=== PATIENT | female | born 1985 | race Caucasian/White ===

== ENCOUNTER 2025-08-20 09:28 | Emergency (ER) | payer OTHER, SELFPAY ==
[2025-08-20 09:57] VITALS: BP 115/62; PULSE 106; RESP 18; TEMP 36.6; O2SAT 99
[2025-08-20 10:04] LABS: EDSTREPNEGPOS1 Positive (Negative)
[2025-08-20 10:11] LABS: EDCOVIDSCREEN Negative (Negative); EDINFLUASCREEN Negative (Negative); EDINFLUBSCREEN Negative (Negative)
--- NOTE | 2025-08-20 11:16 | ED_ITS ---
HPI - URI/Sore Throat General Chief Complaint: Upper Respiratory Infection Stated Complaint: Sore Throat History of Present Illness HPI Narrative: 40-year-old female here with complaints of congestion, cough, sore throat that started Thursday. Patient with fever also. Treated with amoxicillin for strep about 3 weeks ago states full resolution and then she started getting sick just on Thursday. Has a son also with fever and sore throat that is here today being evaluated to. Denies any shortness of breath, nausea, vomiting. Related Data Home Medications ?Medication ?Instructions ?Recorded ?Confirmed ?Last Taken ?Type levothyroxine 50 mcg tablet mcg 08/20/25 Unknown Hist ory metoprolol succinate 25 mg mg PO 08/20/25 Unknown His tory tablet,extended release 24 hr phendimetrazine tartrate 105 mg mg PO 08/20/25 Unknow n History capsule,extended release Allergies Allergy/AdvReac Type Severity Reaction Status Date / Time metoclopramide (From Reglan) AdvReac Intermediate Shakiness Verified 08/20/25 10:08 Review of Systems Review of Systems: All systems reviewed & are unremarkable except as noted in HPI and below Eyes: Eyes: Reports as per HPI ENT: Reports as per HPI Cardiovascular: Cardiovascular: Reports as per HPI Respiratory: Respiratory: Reports as per HPI Genitourinary: Genitourinary: Reports as per HPI Musculoskeletal: Musculoskeletal: Reports as per HPI Integumentary/Breasts: Skin/Breast: Reports as per HPI Neurologic: Reports as per HPI Psychiatric: Psychiatric: Reports as per HPI Endocrine: Endocrine: Reports as per HPI Hematologic/Lymphatic: Hematologic/Lymphatic: Reports as per HPI Allergic/Immunologic: Allergic/Immunologic: Reports as per HPI Exam Const: General: cooperative, healthy appearing, comfortable, no acute distress and well developed Orientation/consciousness: patient oriented x3 HENMT: Head: normal to inspection Ears: TM's normal bilaterally Throat: uvula midline, abnormal tonsil bilateral erythema, hypertrophy 2+ and pitting and posterior oropharynx abnormal erythema Eyes: General: appearance normal, both eyes and all related structures Resp: Effort & Inspection: normal respiratory effort and able to speak in complete sentences Auscultation: clear to auscultation bilaterally Cardio: Rate: regular rate Rhythm: regular rhythm Heart sounds: S1 normal heart sound present and S2 normal heart sound present Skin: General skin exam: normal color Neuro: General: patient oriented x3 Cognition (Neuro): normal cognition Speech: normal speech Psych: Mental Status: mental status grossly normal Course Course Level of Care: Express Care Visit Vital Signs Vital signs: Vital Signs Temperature 97.9 F 08/20/25 09:57 Pulse Rate 106 H 08/20/25 09:57 Respiratory Rate 18 08/20/25 09:57 Blood Pressure 115/62 08/20/25 09:57 Pulse Oximetry 99 08/20/25 09:57 Oxygen Delivery Room Air 08/20/25 09:57 Temperature 97.9 F 08/20/25 09:57 Pulse Rate 106 H 08/20/25 09:57 Respiratory Rate 18 08/20/25 09:57 Blood Pressure 115/62 08/20/25 09:57 Pulse Oximetry 99 08/20/25 09:57 Oxygen Delivery Room Air 08/20/25 09:57 [facility] Narrative Medical decision making narrative: 40-year-old female HPI is noted. Differentials as below. Influenza COVID negative strep was positive. Patient was treated the last month with amoxi cillin. Will treat with Augmentin 10 day course today. Patient states previous course was amoxicillin but for only 7 days. Differential Diagnosis Differential Diagnosis: Differentials include but not limited to COVID, influenza, strep, URI. Lab Data [facility] Lab Attestation statement: I personally reviewed the patient's lab results. Labs: Lab Results 08/20/25 08/20/25 Range/Units 10:03 10:09 POC Influenza A Ag Negative (Negative) POC Influenza B Ag Negative (Negative) POC SARS CoV-2 Ag Negative (Negative) POC Grp A Strep Screen Positive (Negative) Discharge Plan Discharge Clinical Impression: Strep pharyngitis Patient Disposition: Home Condition: Stable Instructions: Antibiotic Form, Strep Throat (DC) Additional Instructions: Finish all antibiotics unless otherwise told do not share drinks after 24 hours please replace toothbrush tylenol or ibuprofen for pain or fever. Patient Language: [place] Island[place] Prescriptions: New amoxicillin-pot clavulanate 875-125 mg tablet 1 tablet PO Q12H 10 Days Qty: 20 0RF No Action phendimetrazine tartrate 105 mg capsule, extended release PO levothyroxine 50 mcg tablet metoprolol succinate 25 mg tablet extended release 24 hr PO Follow-up/Referrals: Ren,Frank Dowell MD [Primary Care Provider] Time of Disposition: 10:19 Quality NIHSS Nursing Documentation ED NIHSS nursing documentation: reviewed/agree
== END 2025-08-20 10:28 | disposition home or self-care (01) ==
PROVIDERS: Emergency Provider Nurse Practitioner Family; PCP Internal Medicine
DX: J02.0 Streptococcal pharyngitis (principal); Z20.822 Contact with and (suspected) exposure to COVID-19
CPT/HCPCS: 87426; 87804; 87880; 99213; G0463